=== PATIENT | male | born 1980 | race Caucasian/White ===

== ENCOUNTER → 2016-08-20 | Outpatient (CLI) | payer OTHER | LOC: BRMIMAGING 14:40 | PROVIDERS: ATTEND Internal Medicine | DX: M25.521 Pain in right elbow (principal) | CPT/HCPCS: 73080-PO ==

== ENCOUNTER → 2018-04-23 | Outpatient (CLI) | payer BC | LOC: CIMAGING 09:44 | PROVIDERS: ATTEND Family Medicine | DX: R07.81 Pleurodynia (principal) | CPT/HCPCS: 71101-PO ==